=== PATIENT | male | born 1955 | race Caucasian/White ===

== ENCOUNTER → 2017-02-22 | Outpatient (CLI) | payer MEDICAID | END | disposition home or self-care (01) | LOC: RADPV 15:18 | PROVIDERS: ATTEND Internal Medicine Cardiovascular Disease | DX: I25.10 Atherosclerotic heart disease of native coronary artery without angina pectoris (principal); I42.9 Cardiomyopathy, unspecified | CPT/HCPCS: 93306 ==

== ENCOUNTER 2018-06-23 08:49 | Day surgery (SDC) | payer MEDICAID ==
[~2018-06-23] VITALS: Ht 193 cm; Wt 101.0 kg
[~2018-06-23 08:49] MED LIST: APIX5TAB PO; ASPI-1182 PO; ATOR10TA84 PO; ATOR40TA28 PO; FURO40 PO; KDUR10 PO; LISI-660 PO; METO25 PO
[2018-06-23] MEDS ORDERED: SODIUM CHLORIDE 0.9% 1,000 ML IV ONE ×2 (09:00→09:32)
[2018-06-23] MEDS ORDERED: LIDOCAINE/PF 1% 30 ML VIAL ONE (10:49)
[2018-06-23] MEDS ORDERED: HEPARIN SODIUM 1000 UNITS/NS 1,000 ML ONE (10:50)
[2018-06-23] MEDS ORDERED: IOHEXOL 300 MG/ML 150 ML VIAL ONE (10:50)
[2018-06-23] MEDS ORDERED: SODIUM BICARBONATE 50 MEQ/50 ML VIAL ONE (10:50)
[2018-06-23] MEDS ORDERED: FentaNYL CITRATE-PF 100 MCG/2 ML VIAL ONE (10:50)
[2018-06-23] MEDS ORDERED: MIDAZOLAM HCL 2 MG/2 ML VIAL ONE (10:51)
[2018-06-23 11:02] VITALS: BP 131/80
[2018-06-23] MEDS ORDERED: LIDOCAINE 1% 30 ML/SOD BICARB 8.4% 4 ML SQ ONE (11:21)
[2018-06-23] MEDS ORDERED: HEPARIN SODIUM 1000 UNITS/NS 1,000 ML IARTER ONE (11:22)
[2018-06-23] MEDS ORDERED: MIDAZOLAM HCL 2 MG/2 ML VIAL IVP ONE (11:23)
[2018-06-23] MEDS ORDERED: IOHEXOL 300 MG/ML 150 ML VIAL IARTER ONE (11:36)
[2018-06-23 12:02] VITALS: BP 121/81
[2018-08-11] MEDS ORDERED: FentaNYL CITRATE-PF 100 MCG/2 ML VIAL IVP ONE (11:23)
== END 2018-06-23 16:30 | disposition home or self-care (01) ==
LOC: CATHLAB 08:49
PROVIDERS: ATTEND Internal Medicine Cardiovascular Disease
DX: I34.0 Nonrheumatic mitral (valve) insufficiency (principal); I25.10 Atherosclerotic heart disease of native coronary artery without angina pectoris; I11.0 Hypertensive heart disease with heart failure; I50.23 Acute on chronic systolic (congestive) heart failure; I44.0 Atrioventricular block, first degree; I45.19 Other right bundle-branch block; I42.8 Other cardiomyopathies; I27.20 Pulmonary hypertension, unspecified; E78.00 Pure hypercholesterolemia, unspecified; I25.2 Old myocardial infarction; Z79.82 Long term (current) use of aspirin; Z95.5 Presence of coronary angioplasty implant and graft; Z86.74 Personal history of sudden cardiac arrest; Z87.442 Personal history of urinary calculi; Z79.01 Long term (current) use of anticoagulants; Z98.890 Other specified postprocedural states; Z79.899 Other long term (current) drug therapy
CPT/HCPCS: 93005; 93460; 99152; 99153; C1760; J1644; J2250; J3010; J3490 ×2; J7030; Q9967